=== PATIENT | male | born 1940 | race Asian ===

== ENCOUNTER 2018-02-09 20:46 | Inpatient (IN) | payer MEDICARE, MEDICAID ==
--- NOTE | 2018-02-09 21:40 | ED Physician Chart ---
ED Chief Complaint/HPI - Patient Information Date Seen:: 02/09/18 Time Seen:: 21:29 Chief Complaint:: generalized weakness Allergies:: Allergies Allergy/AdvReac Type Severity Reaction Status Date / Time No Known Allergies Allergy Verified 02/09/18 21:09 Vitals:: Vital Signs - 8 hr 02/09/18 20:46 Temp 97.4 F HR 64 RR 18 BP 163/106 O2 Sat % 98 Historian:: Medical Records ED Review of Systems - Review of Systems General/Constitutional: Fever (unable to get secondary to ams) ED Past Medical History - Past Medical History Past Medical History: HTN, Other (parkinsons,alzheimers gerd diff iculty walking ,muscle weakness) ED Physical Exam - Physical Examination General/Constitutional: Awake (pt able to follow simple commands like move your arms), No distress Head: Atraumatic Eyes: Lids, conjuctiva normal (scabs on feet) Other Skin comments:: scabs on toes Other Neck comments:: neck contracture Respiratory: Nl effort/Exclusion Cardio Vascular: RRR GI: No tenderness/rebounding/guarding Extremities: No edema ED Assessment - Assessment General Assessment: parkinsons with generalized weakness and failure to thrive ED Septic Shock - . Is Septic Shock (SBP<90, OR Lactate>4 mmol\L) present?: No - <6hrs of presentation: Vital Signs: Vital Signs - 8 hr 02/09/18 20:46 Temp 97.4 F HR 64 RR 18 BP 163/106 O2 Sat % 98 ED Reassessment (Disposition) - Reassessment Reassessment:: labs show hyponatremia severe 126 sodium and mild dehydration with elevated BUN Reassessment Condition:: Unchanged - Patient Disposition Discharge/Transfer:: Acute Care w/in this hosp
[2018-02-09 21:47] LABS: EOSINOPHILE ABSOLUTE 0.2 Th/cmm (0.1-0.4); RED CELL DISTRIBUTION WIDTH 12.3 % (11.5-20.0)
[2018-02-09 21:49] LABS: % BASOPHILS 0.4 % (0.0-2.0); % EOSINOPHILS 2.6 % (0.0-5.0); % LYMPHOCYTES 7.6 % (20.0-50.0); % MONOCYTES 6.4 % (2.0-10.0); HEMATOCRIT 38.5 % (41.0-60); LYMPHOCYTE ABSOLUTE 0.6 Th/cmm (1.5-3.0); MEAN CELL VOLUME 93.1 fl (80-99); MEAN CORPUSCULAR HEMOGLOBIN 31.4 pg (27.0-31.0); MEAN CORPUSCULAR HGB CONC 33.7 pg (28.0-36.0); MEAN PLATELET VOLUME 7.3 fl; MONOCYTE ABSOLUTE 0.5 Th/cmm (0.3-1.0); NEUTROPHILE ABSOLUTE 6.6 Th/cmm (1.8-8.0); PLATELET COUNT 240 Th/cmm (150-400); RED BLOOD COUNT 4.14 Mil/cmm (3.80-5.80); WHITE BLOOD COUNT 7.9 Th/cmm (4.8-10.8)
[2018-02-09 22:03] LABS: ALB/GLOB RATIO 1.3 (1.0-1.8); ALBUMIN 3.7 gm/dL (4.2-5.5); ALKALINE PHOSPHATASE 69 U/L (34-104); ANION GAP 8.6 (7.0-16.0); BILIRUBIN,TOTAL 0.6 mg/dL (0.3-1.0); BUN - UREA NITROGEN 32 mg/dL (7-25); CALCIUM SERUM 8.8 mg/dL (8.6-10.3); CHLORIDE 97 mEq/L (98-107); CREATININE - SERUM 1.1 mg/dL (0.7-1.3); GLUCOSE 91 mg/dL (70-105); POTASSIUM SERUM 3.6 mEq/L (3.5-5.1); SGOT 17 U/L (13-39); SGPT/ALT 4 U/L (7-52); SODIUM SERUM 128 mEq/L (136-145); TOTAL PROTEIN,SERUM 6.6 gm/dL (6.0-8.3)
[2018-02-09] MEDS ORDERED: Sodium Chloride 0.9% 1,000 ML IV ONE ×2 (22:11→22:14)
[2018-02-10] MEDS ORDERED: Sodium Chloride 0.9% 1,000 ML IV SCH (00:03)
[2018-02-10] MEDS: Sodium Chloride 0.9% 1,000 ML IV SCH ×2 (00:20→13:55)
[2018-02-10 01:18] VITALS: BP 168/84
[2018-02-10] MEDS: Ferrous Sulfate 325 MG TAB PO SCH ×3 (08:31→21:22)
[2018-02-10] MEDS ORDERED: Non-Formulary Item 1 EA (Nutritional Supplement [Resource 2.0] 90 ML) PO SCH (09:00)
--- NOTE | 2018-02-10 09:33 | Diagnostic Imaging Report ---
CHEST X-RAY: AP view INDICATION: Shortness of breath COMPARISON: None FINDINGS: Increased interstitial lung markings are noted which may represent a mild degree of congestion. No focal consolidation or effusions. There is elevation of the right hemidiaphragm. Mild cardiomegaly is noted with atherosclerosis. Degenerative changes of the spine are noted. Gas-filled loops of bowel in the left upper quadrant are noted with stool also noted. Degenerative changes of the spine are noted. IMPRESSION: Increased interstitial lung markings which may represent a mild degree of congestion. No focal consolidation identified. Mild cardiomegaly with atherosclerosis.
--- NOTE | 2018-02-10 13:40 | History and Physical ---
History of Present Illness - HPI Chief Complaint: general weakness, Failure to thrieve HPI: This a patient that I follow at the SNF, I received a phone call stating that patient has not been eating well, and seem weakness. Order to transfer patient to ER was given. Vital Signs: Last Vital Signs Temp 98 F 02/10/18 12:00 Pulse 57 02/10/18 12:00 Resp 20 02/10/18 12:00 BP 136/67 02/10/18 12:00 Pulse Ox 98 02/10/18 12:00 Past Medical History Cardiovascular: Report: CHF, HTN Pulmonary: Report: No Pertinent Hx DISTRICT GAUGER: Report: Dementia, Other (Parkinson) GI: Report: Other (Poor appetite) Musculoskeletal: Report: Weakness Rheumatologic: Report: No pertinent Hx Infectious Disease: Report: No Pertinent Hx Renal/: Report: No Pertinent Hx Endocrine: Report: No Pertinent Hx Dermatology: Report: No Pertinent Hx - Past Surgical History Past Surgical History: No pertinent Hx Family Medical History - Family Member Mother History Unknown: Yes Ethnicity: Unknown Living Status: Unknown Other Medical History: unable to give information due to condition. Social History Smoke: No Alcohol: None Drugs: None Lives: Snf Domestic Violence: Negative - Medications Home Medications: Home Medication Medication Instructions Recorded Type Acetaminophen [Tylenol] 650 mg PO Q6HR PRN MDD NTE 3 02/09/18 History grams/24 hrs Acetaminophen [Tylenol] 650 mg PO Q6HR PRN MDD NTE 02/09/18 History 3grams/24 hrs Carbidopa/Levodopa [Sinemet 25-100 1 tab PO TID 02/09/18 History mg Tablet] Divalproex Sodium [Depakote] 125 mg PO DAILY 02/09/18 History Docusate Sodium [Colace] 100 mg PO BID 02/09/18 History Famotidine [Pepcid] 40 mg PO DAILY 02/09/18 History Ferrous Sulfate [Iron] 325 mg PO TID 02/09/18 History Finasteride [Proscar] 5 mg PO DAILY 02/09/18 History Melatonin 6 mg PO HS 02/09/18 History Memantine [Namenda] 10 mg PO BID 02/09/18 History Nutritional Supplement [Resource 90 ml PO TID 02/09/18 History 2.0 237 ml] Pramipexole [Mirapex] 1 mg PO BID 02/09/18 History QUEtiapine Fumarate [SEROquel] 12.5 mg PO DAILY 02/09/18 History QUEtiapine Fumarate [SEROquel] 25 mg PO HS 02/09/18 History Rivastigmine Tartrate [Exelon] 1.5 mg PO BID 02/09/18 History - Allergies Allergies/Adverse Reactions: Allergies Allergy/AdvReac Type Severity Reaction Status Date / Time No Known Allergies Allergy Verified 02/09/18 21:09 Review of Systems - Review of Systems Constitutional: Report: Weakness Eyes: Report: No Significant ENT: Report: No Significant, Nose Pain Respiratory: Report: No Significant Cardiovascular: Report: Other (Patient is Dehydrated.) Gastrointestinal: Report: Other (Poor appetite) Genitourinary: Report: No Significant Musculoskeletal: Report: No Significant Skin: Report: No Significant Neurological: Report: Weakness, Incoordination Physical Exam - Physical Exam HEENT: Report: Ears Nose Throat within normal limits Neck: Report: Within normal limits Cardiovascular Systems: Report: Regular, Rate and Rhythm Respiratory: Report: Breath Sounds are within normal limits Abdomen: Report: Non-tender to palpation Back: Report: Inspection of back is within normal limits. Skin: Report: Color of skin is within normal limits Neuro/Psych: Report: Other (Patient not responding to verbal commands.) - Lab Results All Lab Results last 24 hours: Laboratory Results - last 24 hr 02/09/18 02/09/18 21:40 21:40 WBC 7.9 RBC 4.14 Hgb 13.0 Hct 38.5 L MCV 93.1 MCH 31.4 H MCHC Differential 33.7 RDW 12.3 Plt Count 240 MPV 7.3 Neutrophils % 83.0 H Lymphocytes % 7.6 L Monocytes % 6.4 Eosinophils % 2.6 Basophils % 0.4 Sodium 128 L Potassium 3.6 Chloride 97 L Carbon Dioxide 26.0 Anion Gap 8.6 BUN 32 H Creatinine 1.1 Est GFR ( Amer) TNP Est GFR (Non-Af Amer) TNP BUN/Creatinine Ratio 29.1 Glucose 91 Calcium 8.8 Total Bilirubin 0.6 AST 17 ALT 4 L Alkaline Phosphatase 69 Total Protein 6.6 Albumin 3.7 L Globulin 2.9 Albumin/Globulin Ratio 1.3 - Assessment Assessment: Patient is obtunded, not responding to verbal commands. Patient is DNR with selective treatment , no artificial nutrition. Dx: Dehydration, Hyponatremia, failure to thrieve, CHF, HTN, Parkinson, dementia. - Plan Plan: Patient in IV NS, continue with SNF meds, and purred diet. Patient is DNR and no PEG can be placed. Will continue to monitor.
[2018-02-10] MEDS ORDERED: Non-Formulary Item 1 EA (Melatonin [Melatonin] 6 MG) PO SCH (21:00)
[2018-02-11] MEDS: Sodium Chloride 0.9% 1,000 ML IV SCH (04:26)
[2018-02-11 06:32] LABS: % EOSINOPHILS 1.4 % (0.0-5.0); % LYMPHOCYTES 9.1 % (20.0-50.0); % MONOCYTES 6.1 % (2.0-10.0); % NEUTROPHILS 82.4 % (40.0-80.0); BASOPHILE ABSOLUTE 0.1 Th/cumm (0-0.2); EOSINOPHILE ABSOLUTE 0.1 Th/cmm (0.1-0.4); HEMOGLOBIN 12.8 gm/dL (12-16); LYMPHOCYTE ABSOLUTE 0.7 Th/cmm (1.5-3.0); MEAN CELL VOLUME 92.9 fl (80-99); MEAN CORPUSCULAR HEMOGLOBIN 31.4 pg (27.0-31.0); MEAN CORPUSCULAR HGB CONC 33.8 pg (28.0-36.0); MEAN PLATELET VOLUME 7.6 fl; MONOCYTE ABSOLUTE 0.5 Th/cmm (0.3-1.0); NEUTROPHILE ABSOLUTE 6.5 Th/cmm (1.8-8.0); PLATELET COUNT 259 Th/cmm (150-400); RED BLOOD COUNT 4.08 Mil/cmm (3.80-5.80); RED CELL DISTRIBUTION WIDTH 12.3 % (11.5-20.0); WHITE BLOOD COUNT 7.9 Th/cmm (4.8-10.8)
[2018-02-11 06:38] LABS: ALB/GLOB RATIO 1.3 (1.0-1.8); ALBUMIN 3.3 gm/dL (4.2-5.5); ALKALINE PHOSPHATASE 62 U/L (34-104); ANION GAP 9.2 (7.0-16.0); BUN - UREA NITROGEN 16 mg/dL (7-25); CALCIUM SERUM 8.3 mg/dL (8.6-10.3); CARBON DIOXIDE 24.5 mEq/L (21.0-31.0); CHLORIDE 100 mEq/L (98-107); CHOLESTEROL 172 mg/dL (<200); CREATININE - SERUM 0.8 mg/dL (0.7-1.3); GLUCOSE 90 mg/dL (70-105); HDL -HIGH DENSITY LIPOPROTEIN 59 mg/dL (23-92); POTASSIUM SERUM 3.7 mEq/L (3.5-5.1); SGOT 15 U/L (13-39); SGPT/ALT 8 U/L (7-52); SODIUM SERUM 130 mEq/L (136-145); TOTAL PROTEIN,SERUM 5.8 gm/dL (6.0-8.3); TRIGLYCERIDES 64 mg/dL (<150)
--- NOTE | 2018-02-11 07:27 | Consultation ---
DATE OF CONSULTATION: 02/10/2018 HISTORY OF PRESENT ILLNESS: This 77-year-old male was seen and examined at the courtesy of Dr. Stone. The patient was transferred here from a [place] [facility]. The problem is he has had history of hypertension, history of congestive heart failure, he was also found to have hyponatremia, BUN was slightly increased, azotemia, question of dehydration, Parkinson disease, history of dysphagia, GERD, history of multiple rib fractures. No proper history is available from the patient. Apparently, there was no history of chest pains, no shortness of breath. Complained of weakness. Apparently, no history of cough, no history of fever, no history of hemoptysis, no history of dizziness. No history of seizures, no history of abdominal pain, no history of leg pain. PHYSICAL EXAMINATION: VITAL SIGNS: Heart rate was 78, blood pressure was elevated to 176/94. SKIN: Normal. HEAD: Normocephalic. EYES: Conjunctivae were pink. There is no icterus in the eyes. Pupils reactive to light. NECK: There were no increased jugular venous distention, no thyromegaly, no lymphadenopathy. Carotids equal on both sides. CHEST: Bilaterally symmetrical, moved well with respiration. Respiratory movements equal on both sides. Trachea is central. There is note to percussion. Breath sound, few basilar rales. CARDIOVASCULAR SYSTEM: PMI not well localized. There is no pulsation or thrill. No parasternal heave. S1 normal, S2 physiologic. There were no S3, no rub. ABDOMEN: Soft, no tenderness, no rigidity, no guarding, no organomegaly. Bowel sounds normal. EXTREMITIES: No calf tenderness. Peripheral pulses diminished. There was no swelling. LABORATORY DATA: On reviewing the lab, EKG has not been done so far. We will get EKG. Sodium was 128, potassium 3.6, chloride 97, CO2 of 26, glucose 91, BUN 32, creatinine 1.1. WBC 7.9, hemoglobin 13, hematocrit 38.5, platelet count was 240. Chest x-ray showed increased interstitial lung markings, which may represent a mild degree of congestion. No focal consolidation. IMPRESSION: Hypertension, uncontrolled; congestive heart failure by history, hyponatremia, azotemia, question of dehydration, dysphagia, Parkinson disease, history of gastroesophageal reflux disease, history of multiple rib fractures. PLAN AND DISCUSSION: We will add Coreg 6.25 mg b.i.d. and losartan 50 mg b.i.d. for the hypertension. Keep a close watch on the hemodynamics. We will also get BMP, BNP, lipid profile, and TSH. We will get EKG and echocardiogram to evaluate left ventricular function and valvular structure. Further recommendation will be made depending on the rest of the tests available. JOB# [id number]
[2018-02-11] MEDS: Ferrous Sulfate 325 MG TAB PO SCH ×3 (08:34→21:00)
--- NOTE | 2018-02-11 13:07 | General Progress Note ---
Subjective - Review of Systems Service Date: 02/11/18 Subjective: Patient not responding to verbal commands. Objective - Results Result Diagrams: 02/12/18 04:35 02/12/18 04:35 Recent Labs: Laboratory Last Values WBC 7.9 Th/cmm (4.8-10.8) 02/11/18 05:47 RBC 4.08 Mil/cmm (3.80-5.80) 02/11/18 05:47 Hgb 12.8 gm/dL (12-16) 02/11/18 05:47 Hct 38.0 % (41.0-60) L 02/11/18 05:47 MCV 92.9 fl (80-99) 02/11/18 05:47 MCH 31.4 pg (27.0-31.0) H 02/11/18 05:47 MCHC Differential 33.8 pg (28.0-36.0) 02/11/18 05:47 RDW 12.3 % (11.5-20.0) 02/11/18 05:47 Plt Count 259 Th/cmm (150-400) 02/11/18 05:47 MPV 7.6 fl 02/11/18 05:47 Neutrophils % 82.4 % (40.0-80.0) H 02/11/18 05:47 Lymphocytes % 9.1 % (20.0-50.0) L 02/11/18 05:47 Monocytes % 6.1 % (2.0-10.0) 02/11/18 05:47 Eosinophils % 1.4 % (0.0-5.0) 02/11/18 05:47 Basophils % 1.0 % (0.0-2.0) 02/11/18 05:47 Sodium 130 mEq/L (136-145) L 02/11/18 05:47 Potassium 3.7 mEq/L (3.5-5.1) 02/11/18 05:47 Chloride 100 mEq/L (98-107) 02/11/18 05:47 Carbon Dioxide 24.5 mEq/L (21.0-31.0) 02/11/18 05:47 Anion Gap 9.2 (7.0-16.0) 02/11/18 05:47 BUN 16 mg/dL (7-25) 02/11/18 05:47 Creatinine 0.8 mg/dL (0.7-1.3) 02/11/18 05:47 Est GFR ( Amer) TNP 02/11/18 05:47 Est GFR (Non-Af Amer) TNP 02/11/18 05:47 BUN/Creatinine Ratio 20.0 02/11/18 05:47 Glucose 90 mg/dL (70-105) 02/11/18 05:47 Calcium 8.3 mg/dL (8.6-10.3) L 02/11/18 05:47 Total Bilirubin 1.0 mg/dL (0.3-1.0) 02/11/18 05:47 AST 15 U/L (13-39) 02/11/18 05:47 ALT 8 U/L (7-52) 02/11/18 05:47 Alkaline Phosphatase 62 U/L (34-104) 02/11/18 05:47 B-Natriuretic Peptide 230.0 pg/mL (5.0-100.0) H 02/11/18 05:47 Total Protein 5.8 gm/dL (6.0-8.3) L 02/11/18 05:47 Albumin 3.3 gm/dL (4.2-5.5) L 02/11/18 05:47 Globulin 2.5 gm/dL 02/11/18 05:47 Albumin/Globulin Ratio 1.3 (1.0-1.8) 02/11/18 05:47 Triglycerides 64 mg/dL (<150) 02/11/18 05:47 Cholesterol 172 mg/dL (<200) 02/11/18 05:47 LDL Cholesterol Direct 107 mg/dL (75-193) 02/11/18 05:47 HDL Cholesterol 59 mg/dL (23-92) 02/11/18 05:47 TSH 4.67 uIU/ml (0.34-5.60) 02/11/18 05:47 - Physical Exam Vitals and I&O: Vital Signs Temp 98 F 02/11/18 11:56 Pulse 57 02/11/18 11:56 Resp 18 02/11/18 11:56 BP 133/71 02/11/18 11:56 Pulse Ox 99 02/11/18 11:56 Intake & Output 02/10/18 02/11/18 02/11/18 18:59 06:59 18:59 Intake Total 1200 1000 Balance 1200 1000 Weight (lbs) 46.89 kg 48.988 kg Intake: Intake, IV Amount 1000 1000 Sodium Chloride 0.9% 1, 1000 1000 000 ml @ 75 mls/hr IV . [id number] [facility] Rx#:[id number] Oral 200 Other: # Voids 3 Weight Source Bedscale Bedscale Active Medications: Current Medications Acetaminophen (Tylenol) 650 mg PO Q6H PRN PRN Reason: Pain (Mild) Stop: 04/10/18 23:56 Carbidopa/Levodopa (Sinemet 25mg-100 Mg) 1 tab PO TID [facility] Stop: 04/11/18 08:59 Last Admin: 02/11/18 08:33 Dose: 1 tab Carvedilol (Coreg) 6.25 mg PO BID [facility] Stop: 04/12/18 08:59 Last Admin: 02/11/18 08:33 Dose: 6.25 mg Divalproex Sodium (Depakote Dr) 125 mg PO DAILY [facility]; Protocol Stop: 04/11/18 08:59 Last Admin: 02/11/18 08:33 Dose: 125 mg Docusate Sodium (Colace) 100 mg PO BID [facility] Stop: 04/11/18 08:59 Last Admin: 02/11/18 08:33 Dose: 100 mg Famotidine (Pepcid) 40 mg PO DAILY [facility] Stop: 04/11/18 08:59 Last Admin: 02/11/18 08:32 Dose: 40 mg Ferrous Sulfate (Iron) 325 mg PO TID [facility] Stop: 04/11/18 08:59 Last Admin: 02/11/18 08:34 Dose: 325 mg Finasteride (Proscar) 5 mg PO DAILY [facility]; Protocol Stop: 04/11/18 08:59 Last Admin: 02/11/18 08:33 Dose: 5 mg Sodium Chloride (Nacl 0.9%) 1,000 mls @ 75 mls/hr IV .[id number] [facility] Stop: 04/11/18 01:12 Last Admin: 02/11/18 04:26 Dose: 75 mls/hr Dextrose/Sodium Chloride (D5-0.9%Ns) 1,000 mls @ 75 mls/hr IV .[id number] [facility] Stop: 04/12/18 12:56 Losartan Potassium (Cozaar) 50 mg PO BID [facility] Stop: 04/12/18 08:59 Last Admin: 02/11/18 08:32 Dose: 50 mg Memantine (Namenda) 10 mg PO BID [facility] Stop: 04/11/18 08:59 Last Admin: 02/11/18 08:33 Dose: 10 mg Pramipexole Dihydrochloride (Mirapex) 1 mg PO BID [facility]; Protocol Stop: 04/11/18 08:59 Last Admin: 02/11/18 08:34 Dose: 1 mg Quetiapine Fumarate (Seroquel) 12.5 mg PO DAILY [facility]; Protocol Stop: 04/11/18 08:59 Last Admin: 02/11/18 08:33 Dose: 12.5 mg [facility]ast[facility]ine [facility] ([facility] Stop: 04/11/18 07:59 Last Admin: 02/11/18 08:33 Dose: 1.5 mg General: Alert (Non verbal), Other HEENT: Atraumatic Neck: Supple Cardiovascular: Regular rate Lungs: Other (Bilateral decreased air entry) Abdomen: Bowel sounds, Soft Extremities: Other (No edema) Neurological: Other (Non ambulatory) Skin: Other (Warm and dry) Psych/Mental Status: Other (Confused.) Assessment/Plan - Assessment Assessment: Patient is obtunded, not responding to verbal commands. Patient is DNR with selective treatment , no artificial nutrition. Dx: Dehydration, Hyponatremia, failure to thrieve, CHF, HTN, Parkinson, dementia. - Plan Plan: Patient in IV NS, continue with SNF meds, and purred diet. Patient is DNR and no PEG can be placed. Swallow eval is ordered. Will continue to monitor. Nutritional Asmnt/Malnutr-PDOC - Dietary Evaluation Malnutrition Findings (Please click <Entered> for more info): Nutritional Asmnt/Malnutrition Start: 02/10/18 09: 32 Text: Status: Complete Freq: Protocol: Document 02/10/18 09:32 MARIAJOSE (Rec: 02/10/18 09:38 MARIAJOSE HAY- [email or web address]) Nutritional Asmnt/Malnutrition Patient General Information Nutritional Screening High Risk Diagnosis Hyponatremia, dehydration Pertinent Medical Hx/Surgical Hx HTN, Parkinson's disease, Alzheimer's disease, GERD, muscle weakness Subjective Information Pt asleep at time of visit and did not wake to RD greeting Current Diet Order/ Nutrition Support pureed Pertinent Medications sinemet, coalce, pepcid, Fe, NS@ 75ml/hr Pertinent Labs 02/09: Na 128, K 3.6, Cl 97, CO2 26, BUN 32, Cr 1.1, Ca 8.8, glucose 91 Nutritional Hx/Data Height 1.68 m Height (Calculated Centimeters) 167.6 Current Weight (lbs) 48.625 kg Weight (Calculated Kilograms) 48.6 Weight (Calculated Grams) 52295.1 Body Mass Index (BMI) 17.3 Weight Status Underweight GI Symptoms GI Symptoms None Last BM none noted Difficult in: Chewing Cultural/Ethnic/Gnosticist Belief Unknown Usual diet at home uknown Skin Integrity/Comment: mechelle score 17, intact Estimated Nutritional Goals BEE in Kcals: Using Current wt Calories/Kcals/Kg 30-35kcals/kg Kcals Calculated 1458-1701kcals/day Protein: Using Current wt Protein g/k.1-1.3g/kg Protein Calculated 53-63g/day Fluid: ml 1458-1701ml/day (1ml/kcal) Nutritional Problem 1. Problem Problem Underweight related to Etiology decreased oral intake as evidenced by Signs/Symptoms: BMI 17.3. Intervention/Recommendation Comments Recommend continuing pureed diet Recommend Ensure plus daily Expected Outcomes/Goals Expected Outcomes/Goals Weight trend toward IBW
[2018-02-11] MEDS ORDERED: Albuterol/Ipratropium Neb 3 ML AERS HHN PRN (13:12)
[2018-02-11] MEDS: D5-0.9%NS 1,000 ML IV SCH (13:31)
[2018-02-11 22:39] LABS: URINE MICROSCOPIC INDICATED? YES; URINE SOURCE CLEAN C
[2018-02-11 23:08] LABS: URINE BILIRUBIN NEGATIVE (NEGATIVE); URINE BLOOD MODERATE (NEGATIVE); URINE GLUCOSE (UA) NEGATIVE (NEGATIVE); URINE KETONE NEGATIVE (NEGATIVE); URINE LEUKOCYTE ESTERASE NEGATIVE (NEGATIVE); URINE NITRATE NEGATIVE (NEGATIVE); URINE PROTEIN NEGATIVE (NEGATIVE); URINE UROBILINOGEN 0.2 E.U./dL (0.2 - 1.0)
[2018-02-11 23:21] LABS: URINE CLARITY CLEAR (CLEAR); URINE COLOR YELLOW
[2018-02-11 23:24] LABS: URINE BACTERIA FEW /hpf (NONE SEEN); URINE EPITHELIAL CELLS FEW /lpf (FEW)
[2018-02-12] MEDS: D5-0.9%NS 1,000 ML IV SCH ×2 (04:31→17:25)
[2018-02-12 05:13] LABS: MEAN CORPUSCULAR HEMOGLOBIN 31.7 pg (27.0-31.0); RED CELL DISTRIBUTION WIDTH 12.1 % (11.5-20.0); WHITE BLOOD COUNT 10.1 Th/cmm (4.8-10.8)
[2018-02-12 05:18] LABS: HEMATOCRIT 37.4 % (41.0-60); HEMOGLOBIN 12.8 gm/dL (12-16); MEAN CELL VOLUME 92.2 fl (80-99); MEAN CORPUSCULAR HGB CONC 34.4 pg (28.0-36.0); MEAN PLATELET VOLUME 7.5 fl; PLATELET COUNT 243 Th/cmm (150-400); RED BLOOD COUNT 4.05 Mil/cmm (3.80-5.80)
[2018-02-12 05:25] LABS: ALB/GLOB RATIO 1.2 (1.0-1.8); ALBUMIN 3.3 gm/dL (4.2-5.5); ALKALINE PHOSPHATASE 65 U/L (34-104); ANION GAP 8.3 (7.0-16.0); BILIRUBIN,TOTAL 1.2 mg/dL (0.3-1.0); BUN - UREA NITROGEN 14 mg/dL (7-25); CALCIUM SERUM 8.3 mg/dL (8.6-10.3); CARBON DIOXIDE 24.1 mEq/L (21.0-31.0); CHLORIDE 100 mEq/L (98-107); CREATININE - SERUM 0.8 mg/dL (0.7-1.3); GLUCOSE 111 mg/dL (70-105); POTASSIUM SERUM 3.4 mEq/L (3.5-5.1); SGOT 16 U/L (13-39); SGPT/ALT 13 U/L (7-52); SODIUM SERUM 129 mEq/L (136-145)
[2018-02-12 05:26] LABS: MANUAL DIFF REQUIRED? YES
[2018-02-12 06:06] LABS: BAND NEUTROPHILE 3 % (0-10); EOSINOPHIL 1 % (0-5); LYMPHOCYTE 10 % (20-50); MONOCYTE 4 % (2-10); NEUTROPHILS 82 % (40-80); TOTAL CELLS COUNTED 100
[2018-02-12] MEDS: Ferrous Sulfate 325 MG TAB PO SCH ×3 (08:50→21:17)
--- NOTE | 2018-02-12 13:05 | General Progress Note ---
Subjective - Review of Systems Service Date: 02/12/18 Subjective: Patient not responding to verbal commands. Objective - Results Result Diagrams: 02/12/18 04:35 02/12/18 04:35 Recent Labs: Laboratory Last Values WBC 10.1 Th/cmm (4.8-10.8) 02/12/18 04:35 RBC 4.05 Mil/cmm (3.80-5.80) 02/12/18 04:35 Hgb 12.8 gm/dL (12-16) 02/12/18 04:35 Hct 37.4 % (41.0-60) L 02/12/18 04:35 MCV 92.2 fl (80-99) 02/12/18 04:35 MCH 31.7 pg (27.0-31.0) H 02/12/18 04:35 MCHC Differential 34.4 pg (28.0-36.0) 02/12/18 04:35 RDW 12.1 % (11.5-20.0) 02/12/18 04:35 Plt Count 243 Th/cmm (150-400) 02/12/18 04:35 MPV 7.5 fl 02/12/18 04:35 Neutrophils % 82.4 % (40.0-80.0) H 02/11/18 05:47 Band Neutrophils % 3 % (0-10) 02/12/18 04:35 Lymphocytes % 9.1 % (20.0-50.0) L 02/11/18 05:47 Monocytes % 6.1 % (2.0-10.0) 02/11/18 05:47 Eosinophils % 1.4 % (0.0-5.0) 02/11/18 05:47 Basophils % 1.0 % (0.0-2.0) 02/11/18 05:47 Neutrophils (Manual) 82 % (40-80) H 02/12/18 04:35 Lymphocytes 10 % (20-50) L 02/12/18 04:35 Monocytes 4 % (2-10) 02/12/18 04:35 Eosinophils 1 % (0-5) 02/12/18 04:35 Sodium 129 mEq/L (136-145) L 02/12/18 04:35 Potassium 3.4 mEq/L (3.5-5.1) L 02/12/18 04:35 Chloride 100 mEq/L (98-107) 02/12/18 04:35 Carbon Dioxide 24.1 mEq/L (21.0-31.0) 02/12/18 04:35 Anion Gap 8.3 (7.0-16.0) 02/12/18 04:35 BUN 14 mg/dL (7-25) 02/12/18 04:35 Creatinine 0.8 mg/dL (0.7-1.3) 02/12/18 04:35 Est GFR ( Amer) TNP 02/12/18 04:35 Est GFR (Non-Af Amer) TNP 02/12/18 04:35 BUN/Creatinine Ratio 17.5 02/12/18 04:35 Glucose 111 mg/dL (70-105) H 02/12/18 04:35 Calcium 8.3 mg/dL (8.6-10.3) L 02/12/18 04:35 Total Bilirubin 1.2 mg/dL (0.3-1.0) H 02/12/18 04:35 AST 16 U/L (13-39) 02/12/18 04:35 ALT 13 U/L (7-52) 02/12/18 04:35 Alkaline Phosphatase 65 U/L (34-104) 02/12/18 04:35 B-Natriuretic Peptide 230.0 pg/mL (5.0-100.0) H 02/11/18 05:47 Total Protein 6.0 gm/dL (6.0-8.3) 02/12/18 04:35 Albumin 3.3 gm/dL (4.2-5.5) L 02/12/18 04:35 Globulin 2.7 gm/dL 02/12/18 04:35 Albumin/Globulin Ratio 1.2 (1.0-1.8) 02/12/18 04:35 Triglycerides 64 mg/dL (<150) 02/11/18 05:47 Cholesterol 172 mg/dL (<200) 02/11/18 05:47 LDL Cholesterol Direct 107 mg/dL (75-193) 02/11/18 05:47 HDL Cholesterol 59 mg/dL (23-92) 02/11/18 05:47 TSH 4.67 uIU/ml (0.34-5.60) 02/11/18 05:47 Urine Source CLEAN C 02/09/18 22:07 Urine Color YELLOW 02/09/18 22:07 Urine Clarity CLEAR (CLEAR) 02/09/18 22:07 Urine pH 7.0 (4.6 - 8.0) 02/09/18 22:07 Ur Specific [place] 1.020 (1.005-1.030) 02/09/18 22:07 Urine Protein NEGATIVE mg/dL (NEGATIVE) 02/09/18 22:07 Urine Glucose (UA) NEGATIVE mg/dL (NEGATIVE) 02/09/18 22:07 Urine Ketones NEGATIVE mg/dL (NEGATIVE) 02/09/18 22:07 Urine Blood MODERATE (NEGATIVE) H 02/09/18 22:07 Urine Nitrate NEGATIVE (NEGATIVE) 02/09/18 22:07 Urine Bilirubin NEGATIVE (NEGATIVE) 02/09/18 22:07 Urine Urobilinogen 0.2 E.U./dL (0.2 - 1.0) 02/09/18 22:07 Ur Leukocyte Esterase NEGATIVE (NEGATIVE) 02/09/18 22:07 Urine RBC 2-5 /hpf (0-5) H 02/09/18 22:07 Urine WBC 2-5 /hpf (0-5) 02/09/18 22:07 Ur Epithelial Cells FEW /lpf (FEW) 02/09/18 22:07 Urine Bacteria FEW /hpf (NONE SEEN) 02/09/18 22:07 - Physical Exam Vitals and I&O: Vital Signs Temp 97.3 F 02/12/18 11:52 Pulse 78 02/12/18 11:52 Resp 18 02/12/18 11:52 BP 120/71 02/12/18 11:52 Pulse Ox 100 02/12/18 11:52 Intake & Output 02/11/18 02/12/18 02/12/18 18:59 06:59 18:59 Intake Total 50 1000 Balance 50 1000 Weight (lbs) 48.988 kg 47.31 kg Intake: Intake, IV Amount 1000 D5-0.9%Ns 1,000 ml @ 75 1000 mls/hr IV .[id number] [facility] Rx #:[id number] Oral 50 0 Other: # Voids 3 1 Weight Source Bedscale Bedscale Active Medications: Current Medications Acetaminophen (Tylenol) 650 mg PO Q6H PRN PRN Reason: Pain (Mild) Stop: 04/10/18 23:56 Albuterol/Ipratropium (Duoneb Neb) 3 ml HHN Q6HRT PRN PRN Reason: Shortness of Breath Stop: 02/16/18 13:11 Carbidopa/Levodopa (Sinemet 25mg-100 Mg) 1 tab PO TID [facility] Stop: 04/11/18 08:59 Last Admin: 02/12/18 08:50 Dose: Not Given Carvedilol (Coreg) 6.25 mg PO BID [facility] Stop: 04/12/18 08:59 Last Admin: 02/12/18 08:50 Dose: Not Given Divalproex Sodium (Depakote Dr) 125 mg PO DAILY [facility]; Protocol Stop: 04/11/18 08:59 Last Admin: 02/12/18 08:50 Dose: Not Given Docusate Sodium (Colace) 100 mg PO BID [facility] Stop: 04/11/18 08:59 Last Admin: 02/12/18 08:50 Dose: Not Given Famotidine (Pepcid) 40 mg PO DAILY [facility] Stop: 04/11/18 08:59 Last Admin: 02/12/18 08:50 Dose: Not Given Ferrous Sulfate (Iron) 325 mg PO TID [facility] Stop: 04/11/18 08:59 Last Admin: 02/12/18 08:50 Dose: Not Given Finasteride (Proscar) 5 mg PO DAILY [facility]; Protocol Stop: 04/11/18 08:59 Last Admin: 02/12/18 08:50 Dose: Not Given Dextrose/Sodium Chloride (D5-0.9%Ns) 1,000 mls @ 75 mls/hr IV .[id number] [facility] Stop: 04/12/18 12:59 Last Admin: 02/12/18 04:31 Dose: 75 mls/hr Losartan Potassium (Cozaar) 50 mg PO BID [facility] Stop: 04/12/18 08:59 Last Admin: 02/12/18 08:50 Dose: Not Given Memantine (Namenda) 10 mg PO BID [facility] Stop: 04/11/18 08:59 Last Admin: 02/12/18 10:07 Dose: Not Given Pramipexole Dihydrochloride (Mirapex) 1 mg PO BID [facility]; Protocol Stop: 04/11/18 08:59 Last Admin: 02/12/18 10:07 Dose: Not Given Quetiapine Fumarate (Seroquel) 12.5 mg PO DAILY [facility]; Protocol Stop: 04/11/18 08:59 Last Admin: 02/12/18 10:07 Dose: Not Given Rivastigmine Tartrate (Exelon) 1.5 mg PO BIDWM [facility] Stop: 04/11/18 07:59 Last Admin: 02/12/18 07:54 Dose: Not Given General: Alert (Non verbal), Other HEENT: Atraumatic Neck: Supple Cardiovascular: Regular rate Lungs: Other (Bilateral decreased air entry) Abdomen: Bowel sounds, Soft Extremities: Other (No edema) Neurological: Other (Non ambulatory) Skin: Other (Warm and dry) Psych/Mental Status: Other (Confused.) Assessment/Plan - Assessment Assessment: Patient is obtunded, not responding to verbal commands. Patient is DNR with selective treatment , no artificial nutrition. Dx: Dehydration, Hyponatremia, failure to thrieve, CHF, HTN, Parkinson, dementia. - Plan Plan: Patient in IV NS, continue with SNF meds, and purred diet. Patient is DNR and no PEG can be placed. Awaiting Swallow eval. Will continue to monitor. Nutritional Asmnt/Malnutr-PDOC - Dietary Evaluation Malnutrition Findings (Please click <Entered> for more info): Nutritional Asmnt/Malnutrition Start: 02/10/18 09: 32 Text: Status: Complete Freq: Protocol: Document 02/10/18 09:32 MARIAJOSE (Rec: 02/10/18 09:38 MARIAJOSE HAY- FNS1) Nutritional Asmnt/Malnutrition Patient General Information Nutritional Screening High Risk Diagnosis Hyponatremia, dehydration Pertinent Medical Hx/Surgical Hx HTN, Parkinson's disease, Alzheimer's disease, GERD, muscle weakness Subjective Information Pt asleep at time of visit and did not wake to RD greeting Current Diet Order/ Nutrition Support pureed Pertinent Medications sinemet, coalce, pepcid, Fe, NS@ 75ml/hr Pertinent Labs 02/09: Na 128, K 3.6, Cl 97, CO2 26, BUN 32, Cr 1.1, Ca 8.8, glucose 91 Nutritional Hx/Data Height 1.68 m Height (Calculated Centimeters) 167.6 Current Weight (lbs) 48.625 kg Weight (Calculated Kilograms) 48.6 Weight (Calculated Grams) 37478.1 Body Mass Index (BMI) 17.3 Weight Status Underweight GI Symptoms GI Symptoms None Last BM none noted Difficult in: Chewing Cultural/Ethnic/Adventism Belief Unknown Usual diet at home uknown Skin Integrity/Comment: mechelle score 17, intact Estimated Nutritional Goals BEE in Kcals: Using Current wt Calories/Kcals/Kg 30-35kcals/kg Kcals Calculated 1458-1701kcals/day Protein: Using Current wt Protein g/k.1-1.3g/kg Protein Calculated 53-63g/day Fluid: ml 1458-1701ml/day (1ml/kcal) Nutritional Problem 1. Problem Problem Underweight related to Etiology decreased oral intake as evidenced by Signs/Symptoms: BMI 17.3. Intervention/Recommendation Comments Recommend continuing pureed diet Recommend Ensure plus daily Expected Outcomes/Goals Expected Outcomes/Goals Weight trend toward IBW
[2018-02-13 03:19] LABS: pH 7.44 (7.35-7.45)
[2018-02-13 03:20] LABS: ALLEN TEST positive
[2018-02-13 05:29] LABS: HEMATOCRIT 41.6 % (41.0-60); HEMOGLOBIN 13.8 gm/dL (12-16); MEAN CELL VOLUME 93.1 fl (80-99); MEAN CORPUSCULAR HEMOGLOBIN 30.9 pg (27.0-31.0); MEAN CORPUSCULAR HGB CONC 33.2 pg (28.0-36.0); MEAN PLATELET VOLUME 7.9 fl; PLATELET COUNT 258 Th/cmm (150-400); RED BLOOD COUNT 4.47 Mil/cmm (3.80-5.80); RED CELL DISTRIBUTION WIDTH 11.9 % (11.5-20.0)
[2018-02-13 05:35] LABS: MANUAL DIFF REQUIRED? YES; WHITE BLOOD COUNT 12.2 Th/cmm (4.8-10.8)
[2018-02-13 05:41] LABS: ALB/GLOB RATIO 1.2 (1.0-1.8); ALBUMIN 3.6 gm/dL (4.2-5.5); ALKALINE PHOSPHATASE 71 U/L (34-104); ANION GAP 12.8 (7.0-16.0); BILIRUBIN,TOTAL 1.4 mg/dL (0.3-1.0); BUN - UREA NITROGEN 16 mg/dL (7-25); CALCIUM SERUM 8.8 mg/dL (8.6-10.3); CARBON DIOXIDE 23.7 mEq/L (21.0-31.0); CHLORIDE 99 mEq/L (98-107); CREATININE - SERUM 0.8 mg/dL (0.7-1.3); GLUCOSE 104 mg/dL (70-105); POTASSIUM SERUM 3.5 mEq/L (3.5-5.1); SGOT 23 U/L (13-39); SGPT/ALT 14 U/L (7-52); SODIUM SERUM 132 mEq/L (136-145); TOTAL PROTEIN,SERUM 6.7 gm/dL (6.0-8.3)
[2018-02-13 06:40] LABS: NEUTROPHILS 84 % (40-80); TOTAL CELLS COUNTED 100
[2018-02-13 06:41] LABS: BAND NEUTROPHILE 0 % (0-10); BASOPHIL 0 % (0-3); EOSINOPHIL 1 % (0-5); LYMPHOCYTE 7 % (20-50); MONOCYTE 8 % (2-10)
--- NOTE | 2018-02-13 08:25 | Diagnostic Imaging Report ---
CHEST X-RAY: AP view INDICATION: Shortness of breath COMPARISON: 02/09/2018 FINDINGS: Low lung volumes are seen with congestive changes small left effusion. Cardiomegaly is noted. Gas-filled loops of bowel of the upper abdomen are noted. IMPRESSION: Low lung volumes with mild pulmonary vascular congestion and small left effusion. Infiltrate of the left lung base cannot be excluded. Cardiomegaly and atherosclerotic vascular disease. Gas-filled loops of bowel of the upper abdomen possibly due to an ileus. Clinical correlation is recommended.
--- NOTE | 2018-02-13 08:42 | General Progress Note ---
Subjective - Review of Systems Service Date: 02/13/18 Subjective: Patient not responding to verbal commands. Objective - Results Result Diagrams: 02/13/18 04:35 02/13/18 04:35 Recent Labs: Laboratory Last Values WBC 12.2 Th/cmm (4.8-10.8) H 02/13/18 04:35 RBC 4.47 Mil/cmm (3.80-5.80) 02/13/18 04:35 Hgb 13.8 gm/dL (12-16) 02/13/18 04:35 Hct 41.6 % (41.0-60) 02/13/18 04:35 MCV 93.1 fl (80-99) 02/13/18 04:35 MCH 30.9 pg (27.0-31.0) 02/13/18 04:35 MCHC Differential 33.2 pg (28.0-36.0) 02/13/18 04:35 RDW 11.9 % (11.5-20.0) 02/13/18 04:35 Plt Count 258 Th/cmm (150-400) 02/13/18 04:35 MPV 7.9 fl 02/13/18 04:35 Neutrophils % 82.4 % (40.0-80.0) H 02/11/18 05:47 Band Neutrophils % 0 % (0-10) 02/13/18 04:35 Lymphocytes % 9.1 % (20.0-50.0) L 02/11/18 05:47 Monocytes % 6.1 % (2.0-10.0) 02/11/18 05:47 Eosinophils % 1.4 % (0.0-5.0) 02/11/18 05:47 Basophils % 1.0 % (0.0-2.0) 02/11/18 05:47 Neutrophils (Manual) 84 % (40-80) H 02/13/18 04:35 Lymphocytes 7 % (20-50) L 02/13/18 04:35 Monocytes 8 % (2-10) 02/13/18 04:35 Eosinophils 1 % (0-5) 02/13/18 04:35 Basophils 0 % (0-3) 02/13/18 04:35 Specimen Source arterial 02/13/18 02:45 Sample Site rr 02/13/18 02:45 pH 7.44 (7.35-7.45) 02/13/18 02:45 pCO2 44.0 mmHg (35.0-45.0) 02/13/18 02:45 pO2 212.0 mmHg (80.0-100.0) H 02/13/18 02:45 HCO3 26.6 mEq/L (20.0-26.0) H 02/13/18 02:45 Base Excess 2.1 mEq/L (-3.0-3.0) 02/13/18 02:45 O2 Saturation 100.0 % (92.0-100.0) 02/13/18 02:45 Cuong Test positive 02/13/18 02:45 Vent Rate na 02/13/18 02:45 Inspired O2 35 02/13/18 02:45 Tidal Volume na 02/13/18 02:45 PEEP na 02/13/18 02:45 Pressure (ins/psv/peep) na 02/13/18 02:45 Critical Value sc 02/13/18 02:45 Sodium 132 mEq/L (136-145) L 02/13/18 04:35 Potassium 3.5 mEq/L (3.5-5.1) 02/13/18 04:35 Chloride 99 mEq/L (98-107) 02/13/18 04:35 Carbon Dioxide 23.7 mEq/L (21.0-31.0) 02/13/18 04:35 Anion Gap 12.8 (7.0-16.0) 02/13/18 04:35 BUN 16 mg/dL (7-25) 02/13/18 04:35 Creatinine 0.8 mg/dL (0.7-1.3) 02/13/18 04:35 Est GFR ( Amer) TNP 02/13/18 04:35 Est GFR (Non-Af Amer) TNP 02/13/18 04:35 BUN/Creatinine Ratio 20.0 02/13/18 04:35 Glucose 104 mg/dL (70-105) 02/13/18 04:35 Calcium 8.8 mg/dL (8.6-10.3) 02/13/18 04:35 Total Bilirubin 1.4 mg/dL (0.3-1.0) H 02/13/18 04:35 AST 23 U/L (13-39) 02/13/18 04:35 ALT 14 U/L (7-52) 02/13/18 04:35 Alkaline Phosphatase 71 U/L (34-104) 02/13/18 04:35 B-Natriuretic Peptide 230.0 pg/mL (5.0-100.0) H 02/11/18 05:47 Total Protein 6.7 gm/dL (6.0-8.3) 02/13/18 04:35 Albumin 3.6 gm/dL (4.2-5.5) L 02/13/18 04:35 Globulin 3.1 gm/dL 02/13/18 04:35 Albumin/Globulin Ratio 1.2 (1.0-1.8) 02/13/18 04:35 Triglycerides 64 mg/dL (<150) 02/11/18 05:47 Cholesterol 172 mg/dL (<200) 02/11/18 05:47 LDL Cholesterol Direct 107 mg/dL (75-193) 02/11/18 05:47 HDL Cholesterol 59 mg/dL (23-92) 02/11/18 05:47 TSH 4.67 uIU/ml (0.34-5.60) 02/11/18 05:47 Urine Source CLEAN C 02/09/18 22:07 Urine Color YELLOW 02/09/18 22:07 Urine Clarity CLEAR (CLEAR) 02/09/18 22:07 Urine pH 7.0 (4.6 - 8.0) 02/09/18 22:07 Ur Specific [place] 1.020 (1.005-1.030) 02/09/18 22:07 Urine Protein NEGATIVE mg/dL (NEGATIVE) 02/09/18 22:07 Urine Glucose (UA) NEGATIVE mg/dL (NEGATIVE) 02/09/18 22:07 Urine Ketones NEGATIVE mg/dL (NEGATIVE) 02/09/18 22:07 Urine Blood MODERATE (NEGATIVE) H 02/09/18 22:07 Urine Nitrate NEGATIVE (NEGATIVE) 02/09/18 22:07 Urine Bilirubin NEGATIVE (NEGATIVE) 02/09/18 22:07 Urine Urobilinogen 0.2 E.U./dL (0.2 - 1.0) 02/09/18 22:07 Ur Leukocyte Esterase NEGATIVE (NEGATIVE) 02/09/18 22:07 Urine RBC 2-5 /hpf (0-5) H 02/09/18 22:07 Urine WBC 2-5 /hpf (0-5) 02/09/18 22:07 Ur Epithelial Cells FEW /lpf (FEW) 02/09/18 22:07 Urine Bacteria FEW /hpf (NONE SEEN) 02/09/18 22:07 - Physical Exam Vitals and I&O: Vital Signs Temp 97.3 F 02/13/18 08:00 Pulse 78 02/13/18 08:00 Resp 19 02/13/18 08:00 BP 170/74 02/13/18 08:00 Pulse Ox 100 02/13/18 08:00 Intake & Output 02/12/18 02/13/18 02/13/18 18:59 06:59 18:59 Intake Total 967.5 928.75 Balance 967.5 928.75 Weight (lbs) 47.174 kg Intake: Intake, IV Amount 967.5 928.75 D5-0.9%Ns 1,000 ml @ 75 967.5 928.75 mls/hr IV .[id number] [facility] Rx #:[id number] Other: # Voids 3 # Bowel Movements 0 Weight Source Bedscale Active Medications: Current Medications Acetaminophen (Tylenol) 650 mg PO Q6H PRN PRN Reason: Pain (Mild) Stop: 04/10/18 23:56 Albuterol/Ipratropium (Duoneb Neb) 3 ml HHN Q6HRT PRN PRN Reason: Shortness of Breath Stop: 02/16/18 13:11 Carbidopa/Levodopa (Sinemet 25mg-100 Mg) 1 tab PO TID [facility] Stop: 04/11/18 08:59 Last Admin: 02/12/18 21:15 Dose: 1 tab Carvedilol (Coreg) 6.25 mg PO BID [facility] Stop: 04/12/18 08:59 Last Admin: 02/12/18 17:19 Dose: Not Given Divalproex Sodium (Depakote Dr) 125 mg PO DAILY [facility]; Protocol Stop: 04/11/18 08:59 Last Admin: 02/12/18 08:50 Dose: Not Given Docusate Sodium (Colace) 100 mg PO BID [facility] Stop: 04/11/18 08:59 Last Admin: 02/12/18 17:20 Dose: Not Given Famotidine (Pepcid) 40 mg PO DAILY [facility] Stop: 04/11/18 08:59 Last Admin: 02/12/18 08:50 Dose: Not Given Ferrous Sulfate (Iron) 325 mg PO TID [facility] Stop: 04/11/18 08:59 Last Admin: 02/12/18 21:17 Dose: 325 mg Finasteride (Proscar) 5 mg PO DAILY [facility]; Protocol Stop: 04/11/18 08:59 Last Admin: 02/12/18 08:50 Dose: Not Given Furosemide (Lasix) 40 mg IVP DAILY [facility] Stop: 04/14/18 08:59 Dextrose/Sodium Chloride (D5-0.9%Ns) 1,000 mls @ 75 mls/hr IV .[id number] [facility] Stop: 04/12/18 12:59 Last Infusion: 02/13/18 05:48 Dose: 25 mls/hr Ceftriaxone Sodium 1 gm/ (Dextrose) 50 mls @ 100 mls/hr IV Q24H [facility] Stop: 04/14/18 08:44 Losartan Potassium (Cozaar) 50 mg PO BID [facility] Stop: 04/12/18 08:59 Last Admin: 02/12/18 17:20 Dose: Not Given Memantine (Namenda) 10 mg PO BID [facility] Stop: 04/11/18 08:59 Last Admin: 02/12/18 17:20 Dose: Not Given Pramipexole Dihydrochloride (Mirapex) 1 mg PO BID [facility]; Protocol Stop: 04/11/18 08:59 Last Admin: 02/12/18 17:20 Dose: Not Given Quetiapine Fumarate (Seroquel) 12.5 mg PO DAILY [facility]; Protocol Stop: 04/11/18 08:59 Last Admin: 02/12/18 10:07 Dose: Not Given Rivastigmine Tartrate (Exelon) 1.5 mg PO BIDWM [facility] Stop: 04/11/18 07:59 Last Admin: 02/12/18 17:20 Dose: Not Given General: Alert (Non verbal), Other HEENT: Atraumatic Neck: Supple Cardiovascular: Regular rate Lungs: Other (Bilateral decreased air entry) Abdomen: Bowel sounds, Soft Extremities: Other (No edema) Neurological: Other (Non ambulatory) Skin: Other (Warm and dry) Psych/Mental Status: Other (Confused.) Assessment/Plan - Assessment Assessment: Patient is obtunded, not responding to verbal commands. Patient is DNR with selective treatment , no artificial nutrition. Case discussed with family and inform them the poor prognosis. Family do not want artificial feeding. WBC increased and CXR shows pleural effusion and bilateral infiltrated. Dx: PNA, Dehydration, Hyponatremia, failure to thrieve, CHF, HTN, Parkinson, dementia. - Plan Plan: Patient in IV NS, continue with SNF meds, and purred diet. Patient is DNR and no PEG can be placed. Lasix and ceftriaxone are added to treatment. . Will continue to monitor. Nutritional Asmnt/Malnutr-PDOC - Dietary Evaluation Malnutrition Findings (Please click <Entered> for more info): Nutritional Asmnt/Malnutrition Start: 02/10/18 09: 32 Text: Status: Complete Freq: Protocol: Document 02/10/18 09:32 MARIAJOSE (Rec: 02/10/18 09:38 MARIAJOSE HAY- FNS1) Nutritional Asmnt/Malnutrition Patient General Information Nutritional Screening High Risk Diagnosis Hyponatremia, dehydration Pertinent Medical Hx/Surgical Hx HTN, Parkinson's disease, Alzheimer's disease, GERD, muscle weakness Subjective Information Pt asleep at time of visit and did not wake to RD greeting Current Diet Order/ Nutrition Support pureed Pertinent Medications sinemet, coalce, pepcid, Fe, NS@ 75ml/hr Pertinent Labs 02/09: Na 128, K 3.6, Cl 97, CO2 26, BUN 32, Cr 1.1, Ca 8.8, glucose 91 Nutritional Hx/Data Height 1.68 m Height (Calculated Centimeters) 167.6 Current Weight (lbs) 48.625 kg Weight (Calculated Kilograms) 48.6 Weight (Calculated Grams) 51445.1 Body Mass Index (BMI) 17.3 Weight Status Underweight GI Symptoms GI Symptoms None Last BM none noted Difficult in: Chewing Cultural/Ethnic/Sikhism Belief Unknown Usual diet at home uknown Skin Integrity/Comment: mechelle score 17, intact Estimated Nutritional Goals BEE in Kcals: Using Current wt Calories/Kcals/Kg 30-35kcals/kg Kcals Calculated 1458-1701kcals/day Protein: Using Current wt Protein g/k.1-1.3g/kg Protein Calculated 53-63g/day Fluid: ml 1458-1701ml/day (1ml/kcal) Nutritional Problem 1. Problem Problem Underweight related to Etiology decreased oral intake as evidenced by Signs/Symptoms: BMI 17.3. Intervention/Recommendation Comments Recommend continuing pureed diet Recommend Ensure plus daily Expected Outcomes/Goals Expected Outcomes/Goals Weight trend toward IBW
[2018-02-13] MEDS: cefTRIAXone 1 GM in Sodium Chloride 0.9% 50 ML IV SCH (10:07)
[2018-02-13] MEDS: Ferrous Sulfate 325 MG TAB PO SCH ×3 (10:11→22:21)
[2018-02-13] MEDS: D5-0.9%NS 1,000 ML IV SCH (22:25)
[2018-02-14] MEDS: Ferrous Sulfate 325 MG TAB PO SCH ×2 (08:57→14:14)
[2018-02-14 10:09] LABS: BASOPHILE ABSOLUTE 0.1 Th/cumm (0-0.2); EOSINOPHILE ABSOLUTE 0.1 Th/cmm (0.1-0.4); HEMATOCRIT 39.1 % (41.0-60); HEMOGLOBIN 13.4 gm/dL (12-16); LYMPHOCYTE ABSOLUTE 0.4 Th/cmm (1.5-3.0); MEAN CELL VOLUME 92.8 fl (80-99); MEAN CORPUSCULAR HEMOGLOBIN 31.8 pg (27.0-31.0); MEAN CORPUSCULAR HGB CONC 34.3 pg (28.0-36.0); MEAN PLATELET VOLUME 7.4 fl; MONOCYTE ABSOLUTE 0.4 Th/cmm (0.3-1.0); NEUTROPHILE ABSOLUTE 9.1 Th/cmm (1.8-8.0); PLATELET COUNT 244 Th/cmm (150-400); RED BLOOD COUNT 4.22 Mil/cmm (3.80-5.80); WHITE BLOOD COUNT 10.1 Th/cmm (4.8-10.8)
[2018-02-14 10:10] LABS: % BASOPHILS 0.7 % (0.0-2.0); % EOSINOPHILS 0.8 % (0.0-5.0); % LYMPHOCYTES 4.4 % (20.0-50.0); % MONOCYTES 3.8 % (2.0-10.0); % NEUTROPHILS 90.3 % (40.0-80.0)
[2018-02-14 10:24] LABS: ALB/GLOB RATIO 1.2 (1.0-1.8); ALBUMIN 3.4 gm/dL (4.2-5.5); ALKALINE PHOSPHATASE 77 U/L (34-104); BILIRUBIN,TOTAL 0.8 mg/dL (0.3-1.0); BUN - UREA NITROGEN 29 mg/dL (7-25); CALCIUM SERUM 8.7 mg/dL (8.6-10.3); CARBON DIOXIDE 26.8 mEq/L (21.0-31.0); CHLORIDE 106 mEq/L (98-107); GLUCOSE 176 mg/dL (70-105); SGOT 21 U/L (13-39); SGPT/ALT 13 U/L (7-52); SODIUM SERUM 140 mEq/L (136-145); TOTAL PROTEIN,SERUM 6.3 gm/dL (6.0-8.3)
[2018-02-14 10:33] LABS: POTASSIUM SERUM 2.8 mEq/L (3.5-5.1)
[2018-02-14] MEDS: cefTRIAXone 1 GM in Sodium Chloride 0.9% 50 ML IV SCH (10:40)
[2018-02-14] MEDS ORDERED: Potassium Chloride 20 mEq ER Tab PO ONE (11:30)
--- NOTE | 2018-02-14 12:26 | Discharge Summary ---
General Discharge Summary - Discharge Summary Date of Admission: 02/09/18 Admitting Diagnosis: PNA, Dehydration, Hyponatremia, Failure to thrieve, CHF, HTN, Parkinson, De Discharge Date: 02/14/18 Discharge Diagnosis: PNA, Dehydration, CHF, HTN, Hyponatremia, Failure to thrieve, Parkinson, Dementia. Laboratory Findings: Laboratory Results - last 24 hr 02/14/18 02/14/18 10:03 10:03 WBC 10.1 RBC 4.22 Hgb 13.4 Hct 39.1 L MCV 92.8 MCH 31.8 H MCHC Differential 34.3 RDW 12.0 Plt Count 244 MPV 7.4 Neutrophils % 90.3 H Lymphocytes % 4.4 L Monocytes % 3.8 Eosinophils % 0.8 Basophils % 0.7 Sodium 140 Potassium 2.8 L* Chloride 106 Carbon Dioxide 26.8 Anion Gap 10.0 BUN 29 H Creatinine 1.0 Est GFR ( Amer) TNP Est GFR (Non-Af Amer) TNP BUN/Creatinine Ratio 29.0 Glucose 176 H Calcium 8.7 Total Bilirubin 0.8 AST 21 ALT 13 Alkaline Phosphatase 77 Total Protein 6.3 Albumin 3.4 L Globulin 2.9 Albumin/Globulin Ratio 1.2 Hospital Course: Patient was admitted and responded to treatment, he improved, but prognosis is not goon in the middle term. Treatment: Patient received IV NS, K replaced, IV AB, continue with SNF meds, Swallow evaluation was done. Condition at Discharge: Stable Disposition: [facility] (Not SNF) Home Medications: Home Medication Medication Instructions Recorded Type Acetaminophen [Tylenol] 650 mg PO Q6HR PRN MDD NTE 3 02/09/18 History grams/24 hrs Acetaminophen [Tylenol] 650 mg PO Q6HR PRN MDD NTE 02/09/18 History 3grams/24 hrs Carbidopa/Levodopa [Sinemet 25-100 1 tab PO TID 02/09/18 History mg Tablet] Divalproex Sodium [Depakote] 125 mg PO DAILY 02/09/18 History Docusate Sodium [Colace] 100 mg PO BID 02/09/18 History Famotidine [Pepcid] 40 mg PO DAILY 02/09/18 History Ferrous Sulfate [Iron] 325 mg PO TID 02/09/18 History Finasteride [Proscar] 5 mg PO DAILY 02/09/18 History Melatonin 6 mg PO HS 02/09/18 History Memantine [Namenda] 10 mg PO BID 02/09/18 History Nutritional Supplement [Resource 90 ml PO TID 02/09/18 History 2.0] Pramipexole [Mirapex] 1 mg PO BID 02/09/18 History QUEtiapine Fumarate [SEROquel] 12.5 mg PO DAILY 02/09/18 History QUEtiapine Fumarate [SEROquel] 25 mg PO HS 02/09/18 History Rivastigmine Tartrate [Exelon] 1.5 mg PO BID 02/09/18 History Carvedilol [Coreg] 6.25 mg PO BID tab 02/14/18 Rx D5-0.9%Ns 1,000 ml IV .[id number] bag 02/14/18 Rx Furosemide [Lasix] 40 mg IVP DAILY vial 02/14/18 Rx Losartan Potassium [Cozaar] 50 mg PO BID tab 02/14/18 Rx Potassium Chloride ER [Klor-Con] [address] 02/14/18 Rx Sodium Chloride 0.9% [NaCL 0.9%] 1,000 ml IV Q24H bag 02/14/18 Rx cefTRIAXone [Rocephin] 1 gm IV Q24H vial 02/14/18 Rx cloNIDine HCl [Catapres] 0.1 mg PO Q6HR PRN tab 02/14/18 Rx Inpatient Medications: Current Medications Acetaminophen (Tylenol) 650 mg PO Q6H PRN PRN Reason: Pain (Mild) Stop: 04/10/18 23:56 Albuterol/Ipratropium (Duoneb Neb) 3 ml HHN Q6HRT PRN PRN Reason: Shortness of Breath Stop: 02/16/18 13:11 Carbidopa/Levodopa (Sinemet 25mg-100 Mg) 1 tab PO TID [facility] Stop: 04/11/18 08:59 Last Admin: 02/14/18 08:57 Dose: 1 tab Carvedilol (Coreg) 6.25 mg PO BID [facility] Stop: 04/12/18 08:59 Last Admin: 02/14/18 08:58 Dose: 6.25 mg Divalproex Sodium (Depakote Dr) 125 mg PO DAILY [facility]; Protocol Stop: 04/11/18 08:59 Last Admin: 02/14/18 08:56 Dose: 125 mg Docusate Sodium (Colace) 100 mg PO BID [facility] Stop: 04/11/18 08:59 Last Admin: 02/14/18 08:55 Dose: 100 mg Famotidine (Pepcid) 40 mg PO DAILY [facility] Stop: 04/11/18 08:59 Last Admin: 02/14/18 08:55 Dose: 40 mg Ferrous Sulfate (Iron) 325 mg PO TID [facility] Stop: 04/11/18 08:59 Last Admin: 02/14/18 08:57 Dose: 325 mg Finasteride (Proscar) 5 mg PO DAILY [facility]; Protocol Stop: 04/11/18 08:59 Last Admin: 02/14/18 08:59 Dose: 5 mg Furosemide (Lasix) 40 mg IVP DAILY [facility] Stop: 04/14/18 08:59 Last Admin: 02/14/18 08:59 Dose: 40 mg Dextrose/Sodium Chloride (D5-0.9%Ns) 1,000 mls @ 75 mls/hr IV .[id number] [facility] Stop: 04/12/18 12:59 Last Admin: 02/13/18 22:25 Dose: 25 mls/hr Ceftriaxone Sodium 1 gm/ (Sodium Chloride) 50 mls @ 100 mls/hr IV Q24H [facility] Stop: 04/14/18 09:59 Last Admin: 02/14/18 10:40 Dose: 100 mls/hr Losartan Potassium (Cozaar) 50 mg PO BID [facility] Stop: 04/12/18 08:59 Last Admin: 02/14/18 09:00 Dose: 50 mg Memantine (Namenda) 10 mg PO BID [facility] Stop: 04/11/18 08:59 Last Admin: 02/14/18 09:03 Dose: 10 mg Potassium Chloride (Klor-Con) 20 meq PO DAILY [facility] Stop: 04/16/18 08:59 Pramipexole Dihydrochloride (Mirapex) 1 mg PO BID [facility]; Protocol Stop: 04/11/18 08:59 Last Admin: 02/13/18 10:12 Dose: Not Given Quetiapine Fumarate (Seroquel) 12.5 mg PO DAILY [facility]; Protocol Stop: 04/11/18 08:59 Last Admin: 02/14/18 08:58 Dose: 12.5 mg Rivastigmine Tartrate (Exelon) 1.5 mg PO BIDWM [facility] Stop: 04/11/18 07:59 Last Admin: 02/14/18 10:41 Dose: 1.5 mg Activity: Bed Rest Discharge Diet: Pureed Consults and Follow-Up: King Stone [Primary Care Provider] - Consulting Speciality: Other (PCP) Instructions: Hyponatremia, Dehydration, Adult, [id number]
[2018-02-14] MEDS ORDERED: Potassium Chloride 20 mEq ER Tab PO SCH (12:45)
--- NOTE | 2018-02-14 16:26 | Cardiology ---
02/13/[address] Stone. PROCEDURE: Echocardiogram. M-MODE ECHOCARDIOGRAM: Mitral valve, anterior leaflet of mitral valve shows normal excursion, EF velocity. Posterior leaflet of the mitral valve shows normal excursion. Left ventricular posterior wall shows increased thickness, normal excursion. Interventricular septum shows increased thickness, normal excursion, hypertrophy of the left ventricle, ejection fraction 66%. Left atrium enlarged 4.2 cm. Aortic root shows normal dimension, normal excursion of aortic leaflets. CONCLUSION: Hypertrophy of the left ventricle, left atrial enlargement, ejection fraction 66%. 2D ECHO: Long axis view showed normal sized left ventricle with hypertrophy of the left ventricle. Left atrium enlarged. Aortic root shows normal dimension, normal excursion of aortic leaflets. Short axis view of mitral valve normal. Short axis view of aortic valve normal. Apical four chamber view showed normal sized left ventricle with hypertrophy of the left ventricle. Left atrium enlarged. Right ventricular cavity, right atrium normal, no pericardial effusion. Ejection fraction 66%. CONCLUSION: Hypertrophy of the left ventricle. Left atrial enlargement, ejection fraction 66%. Doppler study shows severe mitral regurgitation, moderate aortic regurgitation, moderate tricuspid regurgitation, mild pulmonary regurgitation, right ventricular systolic pressure 58 mmHg consistent with [id number] pulmonary hypertension. JOB# [id number]
== END 2018-02-14 19:03 | DRG 193 ==
LOC: ER 20:46 → MSI 22:40
PROVIDERS: ADMIT General Practice; ATTEND General Practice
DX: J18.9 Pneumonia, unspecified organism (principal); E43 Unspecified severe protein-calorie malnutrition; E87.1 Hypo-osmolality and hyponatremia; J90 Pleural effusion, not elsewhere classified; R64 Cachexia; Z68.1 Body mass index [BMI] 19.9 or less, adult; E86.0 Dehydration; I11.0 Hypertensive heart disease with heart failure; G20 Parkinson's disease; R62.7 Adult failure to thrive; I50.9 Heart failure, unspecified; F02.80 Dementia in other diseases classified elsewhere, unspecified severity, without behavioral disturbance, psychotic disturbance, mood disturbance, and anxiety; Z66 Do not resuscitate; G30.9 Alzheimer's disease, unspecified; K21.9 Gastro-esophageal reflux disease without esophagitis; R13.10 Dysphagia, unspecified
CPT/HCPCS: 36415-UA; 71045-TC; 80053-TC; 80061-TC; 81001-TC; 82803-TC; 83880-TC; 84443-TC; 85007-TC; 85025-TC; 85027-TC; 87086-90; 93005; 94760; J0696; J1940; J7030; J7042; X3401; Z7610